=== PATIENT | male | born 1975 | race Caucasian/White ===

== ENCOUNTER 2019-06-24 19:13 | Emergency (ER) | payer BC ==
[~2019-06-24] VITALS: Ht 177.8 cm; Wt 92.1 kg
[2019-06-24] MEDS ORDERED: KEFLEX500 M1 PO (20:07)
[2019-06-24 20:21] VITALS: BP 145/93
== END 2019-06-24 20:22 | disposition home or self-care (01) ==
LOC: M.ERS 19:13
DX: S61.012A Laceration without foreign body of left thumb without damage to nail, initial encounter (principal); W26.0XXA Contact with knife, initial encounter; Y93.89 Activity, other specified; Y92.89 Other specified places as the place of occurrence of the external cause; Y99.8 Other external cause status